=== PATIENT | female | born 1950 | race Caucasian/White ===

== ENCOUNTER 2023-04-04 18:56 | Emergency (ER) | payer MEDICARE, BC, SELFPAY ==
[2023-04-04 18:58] VITALS: BP 173/106
--- NOTE | 2023-04-04 19:05 | EDRN ---
pt history obtained by who is with patient, unable to obtain history from patient due to history of parkinson's. unsure of patient allergies, states she's allergic to a lot of medications, not sure of the names. pt unsure of any
additional past medical history other than parkinson's.
[2023-04-04 20:55] VITALS: BP 154/73
[2023-04-04 21:03] LABS: % Basophils 0.3 % (0-2); % Eosinophils 0.1 % (0-6); % Immature Granulocytes 0.4 % (0-0.5); % Lymphocytes 3.7 % (20.5-51.1); % Monocytes 5.3 % (1.7-9.3); % Neutrophils 90.2 % (42.2-75.2); Absolute Basophils 0.1 10^3/uL (0-0.2); Absolute Immature Granulocytes 0.1 10^3/uL (0-0.05); Absolute Lymphocytes 0.7 10^3/uL (1.2-3.4); Absolute Neutrophils 16.5 10^3/uL (1.4-6.5); Hematocrit 36.4 % (37.0-47.0); Hemoglobin 13.1 g/dL (12.0-16.0); Mean Corpuscular Hgb 32.3 pg (27.0-31.0); Mean Corpuscular Volume 89.7 fL (81.0-99.0); Mean Platelet Volume 10.1 fL (7.4-10.4); Nucleated Red Blood Cells % 0 %; Platelet Count 204 10^3/uL (130-400); Red Blood Cell Count 4.06 10^6/uL (4.20-5.40); Red Cell Dist. Width 12.4 % (11.5-14.5); White Blood Cell Count 18.4 10^3/uL (4.8-10.8)
[2023-04-04 21:22] LABS: ALT (SGPT) 18 U/L (0-35); AST (SGOT) 40 U/L (14-36); Albumin 4.3 g/dl (3.5-5.0); Alkaline Phosphatase 69 U/L (38-126); Blood Urea Nitrogen 26 mg/dl (7-17); Calcium 10.2 mg/dl (8.4-10.2); Carbon Dioxide 28 mmol/L (22-30); Chloride 95 mmol/L (98-107); Glucose 167 mg/dl (70-99); Sodium 134 mmol/L (135-145); Total Bilirubin 0.6 mg/dl (0.2-1.3); Total Protein 6.7 g/dl (6.3-8.2); eGFR > 60.00
--- NOTE | 2023-04-04 21:35 | ED.GENMED ---
Addendum entered and electronically signed by Joe Heard DO 04/04/23 22:55:
Will proceed with CT scanning, spouse would like to take her on vacation tomorrow I believe will be prudent to rule out anything that would require hospitalization
Addendum entered and electronically signed by Joe Heard DO 04/04/23 22:22:
Procedure note
Fecal disimpaction
Verbal consent, lateral, position gloved finger with lubricant large amount of stool removed from the patient's rectum
Original Note:
History of Present Illness
General
Chief Complaint: Bowel Problem
Source: family
Exam Limitations: altered mental status
Time Seen by Provider: 04/04/23 19:56
Nursing documentation reviewed up to this point in time: agreed with
Travel History
Have you had any contact with someone who has COVID-19?: No
Do you have any symptoms of coronavirus? Fever > 100 degrees, chills, cough, shortness of breath, sore throat, loss of taste or smell, muscle aches, or headache?: No
History of Present Illness
History of Present Illness:
72-year-old female advanced Parkinson's to be goes to bed at 6 PM no bowel movement for about 4 to 6 days previously had a similar episode seen at [facility] no treatment given no vomiting, she is at her baseline mental status per the ,
Past History
Past History
ED Past Medical History: Other (Parkinson's)
Social History
Tobacco: Non-smoker
Drug: None
Personal:
Living: with family
Employment: Not employed
Review of Systems
Review of Systems
Unable to obtain full review of systems at this time due to: non-verbal
Other source history: family
All Other Systems: Not applicable
Constitutional: Denies fever
EENT: Reports no symptoms
Respiratory: Reports no symptoms
Cardiac: Reports no symptoms
ABD/GI: Reports constipated
: Reports no symptoms
Phy Exam
Physical Exam
Physical Exam:
Physical Exam
General: Chronically ill female lying in bed
Neck: Dry lips
Heart: s1/s2 regular rate and rhythm, no murmur. equal radial pulses.
Lungs: no acute respiratory distress. clear bilaterally
Abdomen: Soft
Neuro: Nonverbal hard of hearing
Skin: no rash
Psychiatric: Unable to assess
Extremities: no edema.
Course
Orders/Labs/Results
Orders:
Orders
04/04/23 19:54
Abdomen Xray - 1 View [CR Abdomen - 1 View] Urgent
Comment:
Reason For Exam: fos
04/04/23 20:56
Complete Blood Count/With Diff Urgent
Comprehensive Metabolic Panel Urgent
04/04/23 20:59
Lactulose [Duphalac/Chronulac] 20 grams PO NOW STA
04/04/23 21:34
0.9% Sodium Chloride 1000 ml [Nss] 1,000 ml IV BOLUS
Abnormal Lab Results
04/04/23
20:56
WBC 18.4 H 10^3/uL
(4.8-10.8)
RBC 4.06 L 10^6/uL
(4.20-5.40)
Hct 36.4 L %
(37.0-47.0)
MCH 32.3 H pg
(27.0-31.0)
Abs Immat Gran (auto) 0.1 H 10^3/uL
(0-0.05)
Absolute Neuts (auto) 16.5 H 10^3/uL
(1.4-6.5)
Absolute Lymphs (auto) 0.7 L 10^3/uL
(1.2-3.4)
Absolute Monos (auto) 1.0 H 10^3/uL
(0.1-0.6)
Neutrophils % 90.2 H %
(42.2-75.2)
Lymphocytes % 3.7 L %
(20.5-51.1)
Sodium 134 L mmol/L
(135-145)
Chloride 95 L mmol/L
(98-107)
BUN 26 H mg/dl
(7-17)
Creatinine 0.4 L mg/dL
(0.6-1.0)
Glucose 167 H mg/dl
(70-99)
AST 40 H U/L
(14-36)
04/04/23 20:56
04/04/23 20:56
Vital Signs
Initial and Last Documented VS:
Initial Vital Signs
Temp Pulse Resp BP Pulse Ox
97.5 F 117 18 173/106 99
04/04/23 18:58 04/04/23 18:58 04/04/23 18:58 04/04/23 18:58 04/04/23 18:58
Last Documented Vital Signs
Temp Pulse Resp BP Pulse Ox
97.5 F 90 16 153/70 97
04/04/23 18:58 04/04/23 21:55 04/04/23 21:55 04/04/23 21:55 04/04/23 21:55
MDM/Problems Addressed
Differential Diagnosis Includes:
Constipation dehydration occult infection
MDM/Problems Addressed:
Constipation
Chronic conditions affecting care:
Parkinsonism
Acute Exacerbation and/or Progression of Chronic Illness:
Parkinsonism
*Radiology
Radiology exam reviewed: radiology read reviewed
*Pulse Oximetry
Patient hypoxic: no
*Critical Care Note
Total Time (30-74mins, 75-104mins- exclusive of procedures): Not Applicable
Update Note
Update Note:
Update, patient looks dry, will start fluids, check labs, x-ray noted report noted will check rectal consideration for advanced imaging
Patient states this is her baseline mental status
10:20 PM patient tried to have a bowel movement looks uncomfortable her abdomen is soft she does have a fecal impaction which I was able to manually disimpact she immediately felt better passed a large amount of moderately hard stool
Reviewed labs etc. with shared decision making, he will bring her back if she has worsening symptoms, the meantime we will start some stool softeners hold on advanced imaging
ED Attending Note
-
Portions of this chart may have been created with voice recognition software.� Occasional wrong word or��sound alike� substitutions may have occurred due to the inherent limitations of voice recognition software.
Discharge Plan
Departure
Patient Disposition: Home (Routine Discharge)
Date of Disposition: 04/04/23
Time of Disposition: 22:09
Patient with high blood pressure during this ER visit?: No
Condition: Good
Discharge Problem:
Fecal impaction
Instructions: Constipation, Adult (DC), Fecal Impaction (DC)
Prescriptions:
New
polyethylene glycol 3350 [Miralax] 17 gram/dose powder
4 g PO DAILY PRN (Reason: Constipation) Qty: 238 0RF
lactulose 10 gram/15 mL solution
10 g PO DAILY PRN (Reason: Constipation) Qty: 473 0RF
Referrals:
April Saldana MD [Family Provider] -
Interventions
Interventions:
*Risk Screen - Suicide Last Done: 04/04/23 20:56
*General Assessment Last Done: 04/04/23 18:58
*Neglect/Abuse Screening Last Done: 04/04/23 20:56
*ED COVID-19 Vaccine History Last Done: 04/04/23 18:58
XE-Hwnpir-Rkmiuyftud Assessment Last Done: 04/04/23 20:56
[2023-04-04] MEDS: DUPHALAC/CHRONULAC 20 GRAMS PO (21:41)
[2023-04-04 21:55] VITALS: BP 153/70
[2023-04-04] MEDS: NSS 1000 IV (22:55)
[2023-04-04 23:06] VITALS: BMI 21.7
[2023-04-04 23:40] VITALS: BP 134/56
== END 2023-04-05 00:25 | disposition home or self-care (01) ==
LOC: EMR 18:56
PROVIDERS: EMERGENCY PHYSICIAN Emergency Medicine; FAMILY PHYSICIAN Family Medicine
DX: K56.41 Fecal impaction (principal); G20.A1 Parkinson's disease without dyskinesia, without mention of fluctuations; Z88.1 Allergy status to other antibiotic agents; Z88.0 Allergy status to penicillin
CPT/HCPCS: 99285; 96360; 74018; 74177; 80053; 85025; Q9967